=== PATIENT | male | born 1975 | race Caucasian/White ===

== ENCOUNTER 2017-07-25 13:07 | Emergency (ER) | payer MEDICAID, OTHER ==
[~2017-07-25] VITALS: Ht 182.9 cm; Wt 128.8 kg
[2017-07-25] MEDS ORDERED: PROMETHAZINE HCL 25 MG/ML 1ML IM ONE (15:00)
[2017-07-25] MEDS ORDERED: MORPHINE SULFATE 10 MG/ML INJ 1ML SDV IM ONE (15:00)
[2017-07-25 15:54] VITALS: BP 117/73
== END 2017-07-25 16:17 | disposition home or self-care (01) ==
LOC: ER 13:07
DX: M45.6 Ankylosing spondylitis lumbar region (principal); M48.06 Spinal stenosis, lumbar region; G89.29 Other chronic pain
CPT/HCPCS: 72131; 96372; 99284; J2270; J2550

== ENCOUNTER 2018-03-11 03:51 | Emergency (ER) | payer MEDICAID ==
[~2018-03-11] VITALS: Ht 185.4 cm; Wt 129.3 kg
[2018-03-11 04:16] VITALS: BP 145/88
== END 2018-03-11 04:32 | disposition left against medical advice (07) ==
LOC: ER 03:53
DX: G89.29 Other chronic pain (principal); M54.5 Low back pain; Z53.21 Procedure and treatment not carried out due to patient leaving prior to being seen by health care provider

== ENCOUNTER 2018-03-19 06:00 | Emergency (ER) | payer MEDICAID ==
[~2018-03-19] VITALS: Ht 185.4 cm; Wt 131.5 kg
[2018-03-19 06:20] VITALS: BP 142/87
[2018-03-19] MEDS ORDERED: MORPHINE SULFATE 4 MG/ML SYR/VIAL IM ONE (07:45)
[2018-03-19] MEDS ORDERED: PROMETHAZINE HCL 25 MG/ML 1ML IM ONE (07:45)
[2018-03-19] MEDS ORDERED: MORPHINE SULFATE INJECTION 1 ML ONE (07:56)
== END 2018-03-19 08:20 | disposition home or self-care (01) ==
LOC: ER 06:02
DX: M54.42 Lumbago with sciatica, left side (principal); G89.29 Other chronic pain; I10 Essential (primary) hypertension; M19.90 Unspecified osteoarthritis, unspecified site
CPT/HCPCS: 72128; 72131; 96372; 99284; J2270; J2550

== ENCOUNTER 2019-04-30 12:18 | Emergency (ER) | payer MEDICAID ==
[~2019-04-30] VITALS: Ht 185.4 cm; Wt 129.3 kg
[2019-04-30 13:14] LABS: Basophils # (auto) 0.1 uL; Basophils % (auto) 0.5 % (0.0-2.0); Eosinophils # (auto) 0.2 uL; Eosinophils % (auto) 2.1 % (0.0-7.0); Hematocrit 43.7 % (41.0-53.0); Hemoglobin 15.1 g/dL (13.5-17.5); Lymphocytes # (auto) 2.2 uL; Lymphocytes % (auto) 22.1 % (10.0-50.0); Mean Corpuscular Hemoglobin 29.9 pg (28.0-32.0); Mean Corpuscular Hgb Conc. 34.6 g/dL (32.0-36.0); Mean Corpuscular Volume 86.5 fL (80.0-100.0); Monocytes # (auto) 1.1 uL; Monocytes % (auto) 10.8 % (0.0-12.0); Neutrophils # (auto) 6.4 uL; Neutrophils % (auto) 64.5 % (37.0-80.0); Nucleated Red Blood Cells % 0.2 %; Platelet Count (auto) 263 10^3/uL (140-450); Red Blood Cells 5.06 10^6/uL (4.5-5.90); Red Cell Distribution Width 13.3 % (11.8-14.3); White Blood Cell 9.9 10^3/uL (4.4-10.8)
[2019-04-30 13:29] LABS: Albumin 3.7 g/dL (3.4-5.0); Anion Gap 10 (5-15); Blood Urea Nitrogen 11 mg/dL (7-18); Carbon Dioxide 25 mmol/L (21-32); Chloride 102 mmol/L (98-107); Glucose 86 mg/dL (74-106); Potassium 3.6 mmol/L (3.5-5.1); Sodium 137 mmol/L (136-145)
[2019-04-30 13:35] LABS: Alanine Aminotransferase 63 U/L (16-61); Alkaline Phosphatase 65 U/L (45-117); Aspartate Aminotransferase 30 U/L (15-37); BUN/Creatinine Ratio 14.1; Bilirubin, Total 0.4 mg/dL (0.2-1.0); GFR African American 140 mL/min; GFR Non-African American 116 mL/min; Total Protein 7.7 g/dL (6.4-8.2)
[2019-04-30 14:04] LABS: Urine WBC None Seen /hpf (0 - 3)
[2019-04-30 14:06] VITALS: BP 124/76
[2019-04-30 14:15] LABS: Urine Bacteria NONE SEEN /hpf (None Seen); Urine Blood Negative /uL (Negative); Urine Specific Gravity 1.008 (1.001-1.035)
== END 2019-04-30 14:16 | disposition home or self-care (01) ==
LOC: ER 12:21
DX: R07.89 Other chest pain (principal); M19.90 Unspecified osteoarthritis, unspecified site; K21.9 Gastro-esophageal reflux disease without esophagitis; E78.5 Hyperlipidemia, unspecified; I10 Essential (primary) hypertension
CPT/HCPCS: 36415; 71045; 80053; 81001; 84484; 85025; 93005

== ENCOUNTER 2023-07-31 11:08 | Emergency (ER) | payer MEDICAID ==
[~2023-07-31] VITALS: Ht 182.9 cm; Wt 114.0 kg
[2023-07-31 11:56] LABS: Basophils # (auto) 0 10 ^3/uL (0-0.2); Basophils % (auto) 0.4 % (0.0-2.0); Eosinophils # (auto) 0.3 10 ^3/uL (0-0.8); Hematocrit 45.9 % (41.0-53.0); Hemoglobin 15.9 g/dL (13.5-17.5); Lymphocytes # (auto) 2.3 10 ^3/uL (0.4-5.4); Lymphocytes % (auto) 41.3 % (10.0-50.0); Mean Corpuscular Hemoglobin 30.9 pg (28.0-32.0); Mean Corpuscular Hgb Conc. 34.6 g/dL (32.0-36.0); Mean Corpuscular Volume 89.1 fL (80.0-100.0); Monocytes # (auto) 0.4 10 ^3/uL (0-1.3); Monocytes % (auto) 6.8 % (0.0-12.0); Neutrophils # (auto) 2.6 10 ^3/uL (1.6-8.6); Neutrophils % (auto) 46.5 % (37.0-80.0); Nucleated Red Blood Cells % 0.4 %; Red Blood Cells 5.15 10^6/uL (4.5-5.90); Red Cell Distribution Width 12.8 % (11.8-14.3); White Blood Cell 5.6 10^3/uL (4.4-10.8)
[2023-07-31 12:00] VITALS: PULSE 83; RESP 19; O2SAT 96
[2023-07-31 12:05] LABS: Alanine Aminotransferase 65 U/L (7-40); Alkaline Phosphatase 85 U/L (46-116); Calcium 10.3 mg/dL (8.7-10.4); Carbon Dioxide 25 mmol/L (20-30); Chloride 99 mmol/L (98-107); Lactic Acid w/Reflex 6.6 mmol/L (0.4-2.0)
[2023-07-31 12:06] LABS: Albumin 4.9 g/dL (3.2-4.8); Anion Gap 10 (5-15); Aspartate Aminotransferase 44 U/L (13-40); BUN/Creatinine Ratio 11.2 (10.0-20.0); Bilirubin, Total 0.6 mg/dL (0.2-1.0); Blood Urea Nitrogen 11 mg/dL (9-23); Glucose 206 mg/dL (74-106); Magnesium 1.7 mg/dL (1.6-2.6); Potassium 3.4 mmol/L (3.5-5.1); Sodium 134 mmol/L (136-145); Total Protein 7.8 g/dL (5.7-8.2)
[2023-07-31] MEDS ORDERED: SODIUM CHLORIDE 0.9% 1,000 ML IV ONE (13:15)
[2023-07-31 13:56] LABS: Urine Bacteria NONE SEEN /hpf (None Seen); Urine Blood Negative /uL (Negative); Urine Clarity Clear (Clear); Urine Color Yellow (Yellow); Urine Hyaline Cast FEW /lpf (0 - 2); Urine Mucus FEW (None Seen); Urine Protein, UAD TRACE (Negative); Urine Specific Gravity 1.022 (1.001-1.035); Urine Urobilinogen Normal (Negative); Urine WBC <1 /hpf (0 - 3)
[2023-07-31 14:08] LABS: Amphetamine Screen, Urine Neg (NEGATIVE); Barbiturate Scree,Urine Neg (NEGATIVE); Benzodiazephine Screen, Urine Neg (NEGATIVE); Cannabinoid Screen, Urine Neg (NEGATIVE); Cocaine Screen, Urine Neg (NEGATIVE); Opiate Scree,Urine Pos (NEGATIVE); Phencyclidine Screen, Urine Neg (NEGATIVE)
[2023-07-31 14:15] LABS: Base Excess 5.7 mmol/L (-2.0-2.0)
[2023-07-31 14:39] VITALS: BP 140/83; PULSE 92; RESP 20; TEMP 98.2; O2SAT 96
[2023-08-01] MEDS ORDERED: HYDR50TA69 PO (14:30)
== END 2023-07-31 18:34 | disposition left against medical advice (07) ==
LOC: ER 11:08
DX: R00.2 Palpitations (principal); R06.00 Dyspnea, unspecified; I10 Essential (primary) hypertension; E78.5 Hyperlipidemia, unspecified; K21.9 Gastro-esophageal reflux disease without esophagitis; Z87.891 Personal history of nicotine dependence
CPT/HCPCS: 36415; 36600; 71045; 80053; 80307; 81001; 82805; 83605; 83735; 83880; 84484; 85025; 85379; 87040; 93005; 96360; 99285; J7030

== ENCOUNTER 2023-08-01 09:40 | Emergency (ER) | payer MEDICAID ==
[~2023-08-01] VITALS: Ht 185.4 cm; Wt 113.0 kg
[2023-08-01 10:21] LABS: Base Excess 4.4 mmol/L (-2.0-2.0)
[2023-08-01 10:21] LABS: Basophils # (auto) 0 10 ^3/uL (0-0.2); Basophils % (auto) 0.2 % (0.0-2.0); Eosinophils # (auto) 0.1 10 ^3/uL (0-0.8); Hematocrit 44.4 % (41.0-53.0); Hemoglobin 15.7 g/dL (13.5-17.5); Lymphocytes # (auto) 1.9 10 ^3/uL (0.4-5.4); Lymphocytes % (auto) 20.6 % (10.0-50.0); Mean Corpuscular Hemoglobin 31.1 pg (28.0-32.0); Mean Corpuscular Hgb Conc. 35.3 g/dL (32.0-36.0); Mean Corpuscular Volume 88.2 fL (80.0-100.0); Monocytes # (auto) 0.4 10 ^3/uL (0-1.3); Monocytes % (auto) 4.6 % (0.0-12.0); Neutrophils # (auto) 6.6 10 ^3/uL (1.6-8.6); Neutrophils % (auto) 73.6 % (37.0-80.0); Nucleated Red Blood Cells % 0.4 %; Red Blood Cells 5.03 10^6/uL (4.5-5.90); Red Cell Distribution Width 13.1 % (11.8-14.3)
[2023-08-01] MEDS ORDERED: LORazepam 0.5 MG TAB PO ONE (10:30)
[2023-08-01 10:37] VITALS: PULSE 81; RESP 20; O2SAT 96
[2023-08-01 10:46] LABS: Alanine Aminotransferase 60 U/L (7-40); Albumin 4.8 g/dL (3.2-4.8); Alkaline Phosphatase 85 U/L (46-116); Anion Gap 11 (5-15); Aspartate Aminotransferase 43 U/L (13-40); BUN/Creatinine Ratio 11.8 (10.0-20.0); Blood Urea Nitrogen 9 mg/dL (9-23); Calcium 10.2 mg/dL (8.7-10.4); Carbon Dioxide 23 mmol/L (20-30); Chloride 100 mmol/L (98-107); Glucose 105 mg/dL (74-106); Lipase 48 U/L (12-53); Magnesium 1.7 mg/dL (1.6-2.6); Potassium 3.6 mmol/L (3.5-5.1); Sodium 134 mmol/L (136-145)
[2023-08-01 10:47] LABS: Bilirubin, Total 1.4 mg/dL (0.2-1.0); Total Protein 7.6 g/dL (5.7-8.2)
[2023-08-01 10:59] LABS: Free T3 3.46 pg/mL (2.3-4.2); Free T4 (Free Thyroxine) 1.4 ng/dL (0.89-1.76)
[2023-08-01 12:35] LABS: Amphetamine Screen, Urine Neg (NEGATIVE); Barbiturate Scree,Urine Neg (NEGATIVE); Benzodiazephine Screen, Urine Neg (NEGATIVE); Cocaine Screen, Urine Neg (NEGATIVE); Opiate Scree,Urine Neg (NEGATIVE); Phencyclidine Screen, Urine Neg (NEGATIVE)
[2023-08-01 12:36] LABS: Cannabinoid Screen, Urine Neg (NEGATIVE)
[2023-08-01] MEDS ORDERED: HYDR50TA69 PO (14:30)
[2023-08-01 14:31] VITALS: BP 105/68; PULSE 84; RESP 17; TEMP 98.8; O2SAT 97
== END 2023-08-01 14:45 | disposition home or self-care (01) ==
LOC: EDUNIT# 09:40 → ER 09:40 → EDBD 09:40 → ER 14:45
DX: F45.8 Other somatoform disorders (principal); I10 Essential (primary) hypertension; K21.9 Gastro-esophageal reflux disease without esophagitis; E78.5 Hyperlipidemia, unspecified; Z87.891 Personal history of nicotine dependence
CPT/HCPCS: 36415; 36600; 71045; 80053; 80307; 82805; 83690; 83735; 84439; 84443; 84481; 84484; 85025; 85379; 93005